=== PATIENT | male | born 1960 | race African-American/Black ===

== ENCOUNTER 2017-12-13 10:02 | Emergency (ER) | payer OTHER ==
[~2017-12-13] VITALS: Ht 165.1 cm; Wt 74.8 kg
[~2017-12-13 10:02] MED LIST: AMOXICILLIN500 MG ORAL; ATIVAN1 MG ORAL; NKM
[2017-12-13 10:09] VITALS: BP 147/72
[2017-12-13] MEDS ORDERED: UNOBMED (10:13)
[2017-12-13] MEDS ORDERED: NAPROXEN375 M2 ORAL (10:36)
--- NOTE | 2017-12-13 10:36 | Emergency Room Report ---
History of Present Illness General Chief Complaint: General Complaint Source: Patient, Medical Record Present Illness HPI This patient c/o burning type pain to left upper extremity about three days. No trauma. Specific location: top of left shoulder, lateral left neck, lateral left upper arm. No trauma, no fever, no similar history. No trauma, no fever, no shortness of breath, no chest pain, no nausea, no vomiting, no diarrhea, no abdominal pain, no syncope, LOC, dizziness, lightheadedness, headache. PMH: depression Allergies: Coded Allergies: No Known Allergies (Unverified , 04/01/14) Nursing Documentation-PMH Past Medical History: No History, Except For History Of Psychiatric Problem: Yes Review of Systems Constitutional: Denies: fever Eye: Denies: acuity changes Respiratory: Denies: cough, shortness of breath Cardiovascular: Denies: chest pain Gastrointestinal: Denies: nausea, vomiting Skin: Denies: rash Neurological: Denies: headache Physical Exam Vital Signs Date Time Temp Pulse Resp B/P (MAP) Pulse Ox O2 Delivery O2 Flow Rate FiO2 12/13/17 10:09 98.0 67 18 147/72 96 Room Air 98.1 General Appearance: well appearing, no apparent distress Head: normocephalic, atraumatic ENT: hearing grossly normal, normal voice Neck: full range of motion, supple Respiratory: no respiratory distress, speaking full sentences Musculoskeletal: no calf tenderness Neurologic: alert, normal gait Psychiatric: mood/affect normal Skin: no rash Medical Decision Making Reaction to Intervention: Improved Diagnostic Impression: Primary Impression: Radiculopathy affecting upper extremity ER Course classic C4 distribution of radiculopathy; no weakness, motor symptoms. normal PE. recommend trial anti-inflammatory. he has PMD appt. December. Last Vital Signs Date Time Temp Pulse Resp B/P (MAP) Pulse Ox O2 Delivery O2 Flow Rate FiO2 12/13/17 10:09 98.0 67 18 147/72 96 Room Air 98.1 Disposition: HOME, SELF-CARE Condition: Improved Scripts Naproxen* (NAPROXEN*) 375 Mg Tablet. 375 MG ORAL TWICE A DAY for 10 Days, #20 TAB Prov: Nathan Ramon M.D. 12/13/17 Patient Instructions: Cervical Radiculopathy, [id number] Nathan Ramon M.D. Dec 13, 2017 10:36
[2017-12-13 10:41] VITALS: BP 147/70
== END 2017-12-13 10:41 | disposition home or self-care (01) ==
LOC: EMR 10:41
DX: M54.10 Radiculopathy, site unspecified (principal)
CPT/HCPCS: 99283